=== PATIENT | female | born 1970 | race American Indian/Alaskan Native ===

== ENCOUNTER 2018-05-01 16:11 | Observation (INO) | payer OTHER ==
[2018-05-01] MEDS ORDERED: ASPIRIN PO ONE (16:28)
[2018-05-01 17:06] LABS: Basophils # (Auto) 0.1 K/mm3 (0.0-0.1); Eosinophils # (Auto) 0.2 K/mm3 (0.0-0.4); Eosinophils % (Auto) 1.8 % (0.0-4.3); Hematocrit 37.1 % (30.3-42.9); Hemoglobin 12.3 gm/dl (10.1-14.3); Lymphocytes # (Auto) 4.1 K/mm3 (1.2-5.4); Lymphocytes % (Auto) 38.5 % (13.4-35.0); Mean Corpuscular HGB Conc 33 % (30-34); Mean Corpuscular Hemoglobin 27 pg (28-32); Mean Corpuscular Volume 80 fl (79-97); Monocytes # (Auto) 0.6 K/mm3 (0.0-0.8); Monocytes % (Auto) 5.4 % (0.0-7.3); Platelet Count 245 K/mm3 (140-440); Red Blood Count 4.63 M/mm3 (3.65-5.03); Red Cell Distribution Width 13.8 % (13.2-15.2)
[2018-05-01 17:24] LABS: BUN/Creatinine Ratio 17; Blood Urea Nitrogen 12 mg/dL (7-17); Calcium 9.4 mg/dL (8.4-10.2); Hemolysis Index 5
[2018-05-01] MEDS ORDERED: NITRO-BID 2% TP ONE (20:21)
[2018-05-01] MEDS ORDERED: K-DUR PO ONE (20:26)
--- NOTE | 2018-05-01 20:26 | Emergency Department Report ---
HPI - General Chief Complaint: Chest Pain Time Seen by Provider: 05/01/18 19:50 - HPI HPI: Room 24 The patient is a 48-year-old female presenting with a chief complaint of chest pain. The patient states this morning at approximately 07:30 she developed right-sided chest pain radiating down the right upper extremity. Patient states the pain is sharp and was initially constant but now is intermittent. The patient does admit to a pleuritic component. Patient denies shortness of breath, nausea/vomiting or diaphoresis. Patient denies fever. The patient states she has never had a stress test or cardiac catheterization Location: [See above] Duration: Onset at 07:30 Quality: Sharp Severity: Currently 0/10 Modifying factors: Sometimes inspiration increases pain Context: [see above] Mode of transportation: Unknown ED Past Medical Hx - Past Medical History Previous Medical History?: Yes Hx Hypertension: Yes Hx Diabetes: Yes Additional medical history: uterine cancer status post hysterectomy 2013. - Surgical History Past Surgical History?: Yes Additional Surgical History: partial hysterectomy - Family History Family history: no significant - Social History Smoking Status: Never Smoker Substance Use Type: None (denies illicit drug use), Alcohol (occasional) ED Review of Systems ROS: Stated complaint: FULL BODY PAIN Other details as noted in HPI Constitutional: denies: diaphoresis Eyes: denies: eye pain ENT: denies: throat pain Respiratory: denies: shortness of breath Cardiovascular: chest pain Endocrine: denies: unexplained weight loss Gastrointestinal: denies: abdominal pain, nausea, vomiting Genitourinary: denies: dysuria Musculoskeletal: denies: back pain Skin: denies: change in color Neurological: denies: headache Physical Exam - Physical Exam Vital Signs: Vital Signs 05/01/18 05/01/18 16:21 19:51 Temperature 98.3 F Pulse Rate 95 H Respiratory 16 20 Rate Blood Pressure 171/104 O2 Sat by Pulse 99 Oximetry Physical Exam: GENERAL: The patient is well-developed well-nourished female lying on stretcher not appearing to be in acute distress. [] HEENT: Normocephalic. Atraumatic. Extraocular motions are intact. Patient has moist mucous membranes. NECK: Supple. Trachea midline CHEST/LUNGS: Clear to auscultation. There is no respiratory distress noted. HEART/CARDIOVASCULAR: Regular. There is no tachycardia. There is no gallop rub or murmur. ABDOMEN: Abdomen is soft, nontender. Patient has normal bowel sounds. There is no abdominal distention. SKIN: There is no rash. There is no edema. There is no diaphoresis. NEURO: The patient is awake, alert, and oriented. The patient is cooperative. The patient has no focal neurologic deficits. The patient has normal speech. Cranial nerves II through XII grossly intact, no drift. [employer] are 5+/5+ bilaterally. Moves all extremities well MUSCULOSKELETAL: There is no evidence of acute injury. NIHSS= 0 LOC a. Alert= 0 Not alert but arousable to minor stimuli=1 Not alert requires repeated or strong stimuli to move= 2 Responds only reflex motor or unresponsive=3 b. asks month and age answers both correctly= 0 answers one correctly= 1 answers neither correctly= 2 Best Gaze normal= 0 abnormal in one or both but forced deviation or total paresis absent= 1 forced deviation or total gaze paresis= 2 Visual no visual loss= 0 partial hemianopia= 1 complete hemianopia= 2 bilateral hemianopia= 3 Facial Palsy normal= 0 minor paralysis= 1 partial paralysis= 2 complete paralysis= 3 Motor Arm no drift= 0 drift before 10 secs but doesnt hit bed= 1 some effort against gravity= 2 no effort against gravity= 3 no movement= 4 Motor leg no drift= 0 drift before 5 secs but doesnt hit bed= 1 drifts to bed before 5 secs= 2 no effort against gravity= 3 no movement= 4 Limb ataxia absent=0 present in one limb= 1 present in two limbs= 2 Sensory normal= 0 mild sensory loss= 1 severe (unaware of being touched)= 2 Best language mild/some loss of fluency= 1 severe= 2 mute= 3 Dysarthria normal= 0 slurs some words= 1 severe/unintelligible= 2 Extinction and Inattention no abnormality= 0 visual, tactile, auditory or personal inattention= 1 profound (doesnt recognize own hand or orients to only one side= 2 ED Course Vital Signs 05/01/18 05/01/18 16:21 19:51 Temperature 98.3 F Pulse Rate 95 H Respiratory 16 20 Rate Blood Pressure 171/104 O2 Sat by Pulse 99 Oximetry ED Medical Decision Making - Lab Data Result diagrams: 05/01/18 16:44 05/01/18 16:44 Laboratory Tests 05/01/18 05/01/18 05/01/18 16:44 16:44 20:40 WBC 10.6 RBC 4.63 Hgb 12.3 Hct 37.1 MCV 80 MCH 27 L MCHC 33 RDW 13.8 Plt Count 245 Lymph % (Auto) 38.5 H [place] % (Auto) 5.4 Eos % (Auto) 1.8 Baso % (Auto) 1.0 Lymph # 4.1 [place] # 0.6 Eos # 0.2 Baso # 0.1 Seg Neutrophils % 53.3 Seg Neutrophils # 5.7 D-Dimer Sodium 139 Potassium 3.0 L Chloride 98.2 Carbon Dioxide 27 Anion Gap 17 BUN 12 Creatinine 0.7 Estimated GFR > 60 BUN/Creatinine Ratio 17 Glucose 153 H Calcium 9.4 Troponin T < 0.010 < 0.010 05/01/18 20:40 WBC RBC Hgb Hct MCV MCH MCHC RDW Plt Count Lymph % (Auto) [place] % (Auto) Eos % (Auto) Baso % (Auto) Lymph # [place] # Eos # Baso # Seg Neutrophils % Seg Neutrophils # D-Dimer < 135.0 Sodium Potassium Chloride Carbon Dioxide Anion Gap BUN Creatinine Estimated GFR BUN/Creatinine Ratio Glucose Calcium Troponin T - EKG Data -: EKG Interpreted by Me EKG shows normal: sinus rhythm Rate: normal - EKG Data When compared to previous EKG there are: previous EKG unavailable Interpretation: normal EKG - Radiology Data Radiology results: image reviewed (chest x-ray) interpreted by me: Chest x-ray-no focal infiltrates, no pneumothorax - Differential Diagnosis ACS, PE, pneumonia, pericarditis, GERD Critical care attestation.: If time is entered above; I have spent that time in minutes in the direct care of this critically ill patient, excluding procedure time. ED Disposition Clinical Impression: Chest pain Disposition: DC-09 OP ADMIT IP TO THIS HOSP Is pt being admited?: Yes Does the pt Need Aspirin: Yes Condition: Fair Instructions: Chest Pain (ED) Referrals: PRIMARY CARE,MD [Primary Care Provider] - 3-5 Days Time of Disposition: 22:20 (hospitalist notified (Dr Osorio))
[2018-05-01] MEDS ORDERED: ASPIRIN ONE (21:26)
[2018-05-01] MEDS ORDERED: NITROSTAT SL PRN (23:41)
[2018-05-01] MEDS ORDERED: MORPHINE IV PRN (23:42)
[2018-05-01] MEDS ORDERED: ZOFRAN IV PRN (23:43)
[2018-05-01] MEDS ORDERED: KCL 10MEQ/100ML 10 MEQ/100 ML BAG IV SCH (23:45)
[2018-05-01] MEDS ORDERED: KCL 10MEQ/100ML 10 MEQ/100 ML BAG IV ONE (23:59)
[2018-05-02] MEDS ORDERED: TYLENOL ONE (00:12)
[2018-05-02] MEDS: TYLENOL PO PRN ×2 (00:18→10:26)
[2018-05-02 02:12] LABS: Creatine Kinase MB < 1.0 ng/mL (0.0-4.0)
--- NOTE | 2018-05-02 06:09 | History and Physical Report ---
History of Present Illness Date of examination: 05/01/18 Date of admission: 05/01/18 23:33 Chief complaint: Chief complaint is chest pain History of present illness: History of presenting illness, patient is alert 48-year-old female who was having sharp intermittent chest pain located in the retrosternal right anterior chest wall area and radiates down the right upper extremity, pain is unaffected by deep breaths but not by movement. Has no history of nausea and vomiting, no history of shortness of breath or diaphoresis. Past History Past Medical History: diabetes, hypertension, other (UTERINE CANCER) Medications and Allergies Allergies Allergy/AdvReac Type Severity Reaction Status Date / Time No Known Allergies Allergy Unverified 05/01/18 16:27 Active Meds: Active Medications Acetaminophen (Tylenol) 650 mg PO Q4H PRN PRN Reason: Headache Last Admin: 05/02/18 00:18 Dose: 650 mg Aspirin (Aspirin) 325 mg PO QDAY [facility] Heparin Sodium (Porcine) (Heparin) 5,000 unit SUB-Q Q12HR [facility] Morphine Sulfate (Morphine) 2 mg IV Q5MIN PRN PRN Reason: Chest Pain Last Admin: 05/02/18 03:49 Dose: 2 mg Nitroglycerin (Nitrostat) 0.4 mg SL .Q5MIN PRN PRN Reason: Chest Pain Nitroglycerin (Nitro-Bid 2%) 1 inch TP QIDNTG [facility]; Protocol Ondansetron HCl (Zofran) 4 mg IV Q8H PRN PRN Reason: Nausea And Vomiting Review of Systems Constitutional: no weight loss, no weight gain, no fever, no sweats, no weakness , no malaise, no chronic pain Eyes: bilateral: other (NO BILATERAL EYE SYMPTOMS) Ears, nose, mouth and throat: no ear pain, no ear discharge, no nose pain, no dental pain, no mouth pain, no hoarseness, no swelling in mouth, no headache, no vertigo Breasts: deferred Cardiovascular: chest pain, high blood pressure, no orthopnea, no palpitations, no syncope, no lightheadedness, no shortness of breath, no paroxysmal nocturnal dyspnea Respiratory: pain on inspiration, no cough, no shortness of breath, no dyspnea on exertion, no congestion, no wheezing, no respiratory infections Gastrointestinal: no abdominal pain, no nausea, no vomiting, no diarrhea, no constipation, no change in bowel habits, no loss of appetite, no heartburn, no jaundice, no early satiety Genitourinary Female: no pelvic pain, no flank pain, no urinary frequency, no mood problems Menstruation: ammenorrhea Rectal: no pain, no bleeding, no hemorrhoids, no flatulence Musculoskeletal: no neck pain, no low back pain, no morning stiffness, no muscle cramps, no prior amputations Integumentary: wounds, no pruritis, no depigmentation, no hirsutism Neurological: no head injury, no numbness, no seizures, no syncope, no convulsions, no change in mentation, no confusion, no double vision Psychiatric: no memory loss, no insomnia, no suicidal ideation, no confusion Endocrine: no cold intolerance, no polyuria, no nocturia, no excessive sweating , no thyroid mass, no palpatations Hematologic/Lymphatic: no easy bruising, no easy bleeding, no lymphadenopathy Allergic/Immunologic: no urticaria, no persistent infections Exam - Constitutional Vitals: Temp Pulse Resp BP Pulse Ox 98.3 F 93 H 19 138/82 100 05/01/18 16:21 05/02/18 00:00 05/02/18 00:00 05/02/18 00:00 05/02/18 00:00 General appearance: Present: no acute distress - EENT Eyes: Present: PERRL, EOM intact. Absent: conjunctival injection, discharge ENT: hearing intact, clear oral mucosa, no oropharyngeal erythema - Neck Neck: Present: supple, normal ROM. Absent: rigidity, enlarged thyroid, masses or JVD, carotid bruits - Respiratory Respiratory effort: normal - Cardiovascular Rhythm: regular Heart Sounds: Present: S1 & S2. Absent: gallop, systolic murmur, diastolic murmur, rub, click - Extremities Extremities: no ischemia, No edema Peripheral Pulses: within normal limits - Abdominal General gastrointestinal: Present: soft, non-tender, non-distended, normal bowel sounds. Absent: tender, distended, rigid, absent bowel sounds, hepatomegaly, splenomegaly - Rectal Rectal Exam: deferred - Integumentary Integumentary: Present: clear, warm, dry, normal turgor. Absent: erythema, jaundice, clammy - Musculoskeletal Musculoskeletal: strength equal bilaterally - Psychiatric Psychiatric: appropriate mood/affect Results - Labs CBC & Chem 7: 05/01/18 16:44 05/01/18 16:44 Labs: Laboratory Last Values WBC 10.6 K/mm3 (4.5-11.0) 05/01/18 16:44 RBC 4.63 M/mm3 (3.65-5.03) 05/01/18 16:44 Hgb 12.3 gm/dl (10.1-14.3) 05/01/18 16:44 Hct 37.1 % (30.3-42.9) 05/01/18 16:44 MCV 80 fl (79-97) 05/01/18 16:44 MCH 27 pg (28-32) L 05/01/18 16:44 MCHC 33 % (30-34) 05/01/18 16:44 RDW 13.8 % (13.2-15.2) 05/01/18 16:44 Plt Count 245 K/mm3 (140-440) 05/01/18 16:44 Lymph % (Auto) 38.5 % (13.4-35.0) H 05/01/18 16:44 [place] % (Auto) 5.4 % (0.0-7.3) 05/01/18 16:44 Eos % (Auto) 1.8 % (0.0-4.3) 05/01/18 16:44 Baso % (Auto) 1.0 % (0.0-1.8) 05/01/18 16:44 Lymph # 4.1 K/mm3 (1.2-5.4) 05/01/18 16:44 [place] # 0.6 K/mm3 (0.0-0.8) 05/01/18 16:44 Eos # 0.2 K/mm3 (0.0-0.4) 05/01/18 16:44 Baso # 0.1 K/mm3 (0.0-0.1) 05/01/18 16:44 Seg Neutrophils % 53.3 % (40.0-70.0) 05/01/18 16:44 Seg Neutrophils # 5.7 K/mm3 (1.8-7.7) 05/01/18 16:44 D-Dimer < 135.0 ng/mlDDU (0-234) 05/01/18 20:40 Sodium 139 mmol/L (137-145) 05/01/18 16:44 Potassium 3.0 mmol/L (3.6-5.0) L 05/01/18 16:44 Chloride 98.2 mmol/L (98-107) 05/01/18 16:44 Carbon Dioxide 27 mmol/L (22-30) 05/01/18 16:44 Anion Gap 17 mmol/L 05/01/18 16:44 BUN 12 mg/dL (7-17) 05/01/18 16:44 Creatinine 0.7 mg/dL (0.7-1.2) 05/01/18 16:44 Estimated GFR > 60 ml/min 05/01/18 16:44 BUN/Creatinine Ratio 17 % 05/01/18 16:44 Glucose 153 mg/dL (65-100) H 05/01/18 16:44 Calcium 9.4 mg/dL (8.4-10.2) 05/01/18 16:44 Total Creatine Kinase 49 units/L (30-135) 05/02/18 01:16 CK-MB (CK-2) < 1.0 ng/mL (0.0-4.0) 05/02/18 01:16 CK-MB (CK-2) Rel Index 2.0 (0-4) 05/02/18 01:16 Troponin T < 0.010 ng/mL (0.00-0.029) 05/02/18 01:16 Assessment and Plan - Patient Problems (1) Chest pain Current Visit: Yes Status: Acute Plan to address problem: Patient will be admitted to telemetry, will have cardiac enzyme involving troponin and total CPK checked every 6 hours 2 levels, patient will be on aspirin 325 mg by mouth daily and will be on Nitropaste 1 inch to anterior chest wall every 6 hours patient will also be on IV morphine 2 mg every 5 minutes as needed for chest pain. Patient will be nothing by mouth I will have lexiscan stress test done this morning, patient will be on oxygen by nasal cannula at 2 L/m will have IV Zofran 4 mg every 8 hours as needed for nausea or vomiting and will also be on Tylenol 650 mg by mouth every 4 hours for headache
[2018-05-02 06:25] LABS: Creatine Kinase MB < 1.0 ng/mL (0.0-4.0)
[2018-05-02 06:28] LABS: BUN/Creatinine Ratio 17; Blood Urea Nitrogen 12 mg/dL (7-17); Calcium 8.9 mg/dL (8.4-10.2); Hemolysis Index 28
[2018-05-02] MEDS ORDERED: K-DUR PO ONE (07:53)
--- NOTE | 2018-05-02 09:15 | Discharge Summary ---
Providers - Providers Date of Admission: 05/01/18 23:33 Date of discharge: 05/02/18 Attending physician: FREDY MARIN Primary care physician: CLASSIFIED AD TAKER Hospitalization Reason for admission: cp Condition: Fair Hospital course: 48-year-old female who was having sharp intermittent chest pain located in the retrosternal right anterior chest wall area and radiates down the right upper extremity, pain is unaffected by deep breaths but not by movement. Has no history of nausea and vomiting, no history of shortness of breath or diaphoresis. Patient had a d-dimer that was found to be negative. Patient underwent stress thallium which was found to be negative. Etiology of chest pain is likely costochondritis. Patient had reproducible pain with palpation on exam. Dedicated discharge time 31 minutes. Disposition: SC- TO HOME OR SELFCARE Time spent for discharge: 31 - Discharge Diagnoses (1) Costochondritis Status: Acute (2) Chest pain Status: Acute Core Measure Documentation - Palliative Care Palliative Care/ Comfort Measures: Not Applicable - Core Measures Any of the following diagnoses?: none Exam - Constitutional Vitals: Temp Pulse Resp BP Pulse Ox 98.1 F 78 18 138/89 98 05/02/18 04:37 05/02/18 04:37 05/02/18 04:37 05/02/18 04:37 05/02/18 04:37 General appearance: Present: no acute distress, well-nourished - EENT Eyes: Present: PERRL ENT: hearing intact, clear oral mucosa - Neck Neck: Present: supple, normal ROM - Respiratory Respiratory effort: normal Respiratory: bilateral: CTA - Cardiovascular Heart Sounds: Present: S1 & S2. Absent: rub, click - Extremities Extremities: pulses symmetrical, No edema Peripheral Pulses: within normal limits - Abdominal General gastrointestinal: Present: soft, non-tender, non-distended, normal bowel sounds Female genitourinary: Present: normal - Integumentary Integumentary: Present: clear, warm, dry - Musculoskeletal Musculoskeletal: gait normal, strength equal bilaterally - Psychiatric Psychiatric: appropriate mood/affect, intact judgment & insight - Neurologic Neurologic: CNII-XII intact, moves all extremities Plan Activity: no restrictions Weight Bearing Status: Full Weight Bearing Diet: diabetic Follow up with: PRIMARY CARE, [Primary Care Provider] - 3-5 Days Prescriptions: Aspirin [Aspirin TAB] 325 mg PO QDAY #30 tablet
[2018-05-02] MEDS ORDERED: ASPIRIN PO SCH (10:00)
[2018-05-02] MEDS ORDERED: HEPARIN SUB-Q SCH (10:00)
[2018-05-02] MEDS: NITRO-BID 2% TP SCH ×2 (10:28→10:29)
[2018-05-02] MEDS ORDERED: K-DUR PO NR (10:30)
[2018-05-02 13:09] VITALS: BP 149/89
--- NOTE | 2018-05-02 16:21 | XRay Report ---
FINAL REPORT EXAM: XR CHEST 1V AP HISTORY: chest pain TECHNIQUE: X-ray chest, one view Comparison: None FINDINGS: There is no evidence of infiltrate, pneumothorax or pleural fluid collection. The cardiomediastinal silhouette is normal in appearance. The bony structures are unremarkable. IMPRESSION: 1. No evidence of an acute pulmonary process.
--- NOTE | 2018-05-02 21:35 | Treadmill Report ---
NUCLEAR PERFUSION SCAN PROTOCOL: The patient was brought to the stress lab in a postabsorptive state, given 10 mCi of technetium 99m at rest. The patient underwent rest imaging. The patient underwent Lexiscan stress test per standard protocol. At peak stress, the patient was given 26 mCi of technetium 99m. Shortly thereafter, the patient underwent stress imaging. Raw imaging reveals mild GI artifact. No significant motion artifact. SPECT imaging examined carefully in horizontal long axis, vertical long axis and short axis views. There is normal homogenous uptake of radioisotope in all reported segments. No evidence of significant fixed or reversible perfusion defect suggestive of prior infarction or ischemia. Gated wall motion was normal systolic thickening. Calculated ejection fraction of 59%. No TID. CONCLUSIONS: 1. Normal myocardial perfusion scan without evidence of active ischemia or prior infarction. 2. Normal left ventricular systolic performance without evidence of transient ischemic dilatation or stress-induced segmental wall motion abnormalities. JOB# [id number] PREMA/DEVIN
== END 2018-05-02 16:29 | disposition home or self-care (01) ==
LOC: ED 16:11 → 4A 23:33 → INTOOBSV 23:33
PROVIDERS: ADMIT Internal Medicine; ATTEND Hospitalist
DX: M94.0 Chondrocostal junction syndrome [Tietze] (principal); I10 Essential (primary) hypertension; E11.9 Type 2 diabetes mellitus without complications; Z85.42 Personal history of malignant neoplasm of other parts of uterus
CPT/HCPCS: 36415; 71045; 78452; 80048; 82550; 82553; 84484; 85025; 85379; 93005; 93010; 93017; 96374; 99285; A9502; G0378; J1644; J2270; J3480